=== PATIENT | female | born 1960 | race Caucasian/White ===

== ENCOUNTER 2020-05-09 18:56 | Inpatient (IN) ==
[2020-05-09] MEDS ORDERED: Naloxone 0.4 MG/ML INJ IVP PRN (22:01)
[2020-05-09] MEDS ORDERED: 0.9 % Sodium Chloride 1,000 ML IVC SCH (22:15)
[2020-05-10] MEDS: Acetaminophen 325 MG TABLET PO PRN ×3 (02:54→19:47)
[2020-05-10 05:33] LABS: Basophils % 0.2 %; Hematocrit 31.6 % (35.3-44.9); Hemoglobin 10.1 g/dL (11.5-15.4); INR 1.4; Immature Granulocytes % 0.9 % (0-4); Lymphocytes # 0.5 K/mcL (0.6-4.6); Lymphocytes % 2.9 %; Mean Corpuscular Hemoglobin 28.9 pg (28.0-33.3); Mean Corpuscular Volume 90.3 fL (83.0-100.0); Mean Platelet Volume 12.2 fL (9.4-12.4); Monocytes # 0.6 K/mcL (0.0-1.3); Monocytes % 3.8 %; Neutrophils # 15.6 K/mcL (1.6-8.9); Platelet Count 110 K/mcL (140-400); Prothrombin Time 16.3 Seconds (9.4-12.1); Red Cell Distribution Width 14.6 % (11.5-14.5); Segmented Neutrophils % 92.2 %; White Blood Count 16.9 K/mcL (4.3-11.1)
[2020-05-10 05:35] LABS: Activated Partial Thrombo Time 27.2 Seconds (26.0-36.0)
[2020-05-10 05:42] LABS: Albumin 2.8 g/dL (3.5-5.7); Bilirubin,Total 0.8 mg/dL (0.3-1.0); Calcium 7.9 mg/dL (8.6-10.3); Globulin 2.7 g/dL (2.4-3.5); Potassium 2.7 mEq/L (3.5-5.1); Total Protein 5.5 g/dL (6.4-8.9)
[2020-05-10] MEDS ORDERED: *HR* Heparin 5,000 UNIT/ML VIAL SQ SCH (06:00)
[2020-05-10 06:32] LABS: Bacteria,Urine Few per hpf (None-Few); Bilirubin,Urine Negative (Negative); Blood,Urine Large (Negative); Clarity,Urine Turbid (Clear); Color,Urine Light-Orange (Yellow); Glucose,Urine (UA) Normal (Normal); Ketones,Urine Trace mg/dL (Negative); Leukocyte Esterase,Urine Large (Negative); Mucus,Urine Few per lpf (None-Few); Nitrite,Urine Positive (Negative); Protein,Urine 200 mg/dL (Neg-Trace); RBC,Urine TNTC per hpf (0-3); Specific Gravity,Urine > 1.030 (1.010-1.025); Urobilinogen,Urine Normal (Normal); WBC,Urine TNTC per hpf (0-3)
[2020-05-10] MEDS: cefTRIAXone 1,000 MG in 0.9 % Sodium Chloride Mini Bag 100 ML IVPB SCH (07:56)
[2020-05-10] MEDS ORDERED: 0.9 % Sodium Chloride 1,000 ML IVC ONE (08:17)
[2020-05-10] MEDS ORDERED: Potassium Chloride 40 MEQ, Lidocaine 1% 2 ML in 0.9 % Sodium Chloride 500 ML IVPB ONE (08:18)
[2020-05-10] MEDS ORDERED: 0.9 % Sodium Chloride 1,000 ML IVC SCH (08:30)
[2020-05-10 09:09] LABS: Magnesium 1.6 mg/dL (1.6-2.6)
[2020-05-10 18:58] LABS: Adenovirus Not Detected (Not Detect); Bordetella Pertussis Not Detected (Not Detect); Chlamydophila pneumoniae Not Detected (Not Detect); Coronavirus 229E Not Detected (Not Detect); Coronavirus HKU1 Not Detected (Not Detect); Coronavirus NL63 Not Detected (Not Detect); Coronavirus OC43 Not Detected (Not Detect); Human Metapneumovirus Not Detected (Not Detect); Human Rhinovirus/Enterovirus Not Detected (Not Detect); Influenza A Subtype 2009 H1 Not Detected (Not Detect); Influenza B Not Detected (Not Detect); Mycoplasma pneumoniae Not Detected (Not Detect); Parainfluenza Virus 1 Not Detected (Not Detect); Parainfluenza Virus 2 Not Detected (Not Detect); Parainfluenza Virus 3 Not Detected (Not Detect); Parainfluenza Virus 4 Not Detected (Not Detect); Respiratory Syncytial Virus Not Detected (Not Detect); SARS-CoV-2 Not Detected (Not Detect)
[2020-05-10] MEDS: 0.9 % Sodium Chloride 1,000 ML IVC SCH (19:49)
[2020-05-10] MEDS: Ondansetron 4 MG/2 ML VIAL IVP PRN (21:09)
[2020-05-10] MEDS ORDERED: Acetaminophen/Butalbital/CaffeineTABLET PO ONE (21:21)
[2020-05-11 03:27] LABS: Basophils % 0.1 %; Hemoglobin 9.4 g/dL (11.5-15.4); Lymphocytes % 3.2 %; Monocytes % 2.9 %
[2020-05-11 03:29] LABS: Hematocrit 30.4 % (35.3-44.9); Immature Granulocytes % 2.2 % (0-4); Immature Platelets 9.2 % (1.1-6.1); Lymphocytes # 0.5 K/mcL (0.6-4.6); Mean Corpuscular HGB Conc 30.9 g/dL (31.6-35.5); Mean Corpuscular Hemoglobin 27.8 pg (28.0-33.3); Mean Corpuscular Volume 89.9 fL (83.0-100.0); Mean Platelet Volume 12.2 fL (9.4-12.4); Monocytes # 0.4 K/mcL (0.0-1.3); Red Blood Count 3.38 M/mcL (3.82-4.97); Red Cell Distribution Width 14.7 % (11.5-14.5); Segmented Neutrophils % 91.6 %; White Blood Count 14.4 K/mcL (4.3-11.1)
[2020-05-11 03:31] LABS: Neutrophils # 13.2 K/mcL (1.6-8.9); Platelet Count 91 K/mcL (140-400)
[2020-05-11 03:49] LABS: Calcium 7.6 mg/dL (8.6-10.3)
[2020-05-11] MEDS: Acetaminophen 325 MG TABLET PO PRN ×2 (04:46→15:53)
[2020-05-11] MEDS: 0.9 % Sodium Chloride 1,000 ML IVC SCH ×2 (07:07→16:39)
[2020-05-11] MEDS: Venlafaxine XR (24 HR) 150 MG CAP.ER.24H PO SCH (07:46)
[2020-05-11] MEDS: cefTRIAXone 1,000 MG in 0.9 % Sodium Chloride Mini Bag 100 ML IVPB SCH (07:46)
[2020-05-11] MEDS ORDERED: Potassium Chloride 40 MEQ, Lidocaine 1% 2 ML in 0.9 % Sodium Chloride 500 ML IVPB ONE (07:55)
[2020-05-11] MEDS: Ondansetron 4 MG/2 ML VIAL IVP PRN (08:44)
[2020-05-11] MEDS ORDERED: *HR* Promethazine 25 MG/ML VIAL IM PRN (09:24)
[2020-05-12] MEDS ORDERED: Ipratropium/Albuterol Neb 3 ML IH PRN
[2020-05-12 01:14] LABS: Basophils % 0.1 %; Hematocrit 32.1 % (35.3-44.9); Hemoglobin 10.1 g/dL (11.5-15.4); Immature Granulocytes % 0.7 % (0-4); Immature Platelets 9.7 % (1.1-6.1); Lymphocytes # 0.5 K/mcL (0.6-4.6); Lymphocytes % 5.5 %; Mean Corpuscular HGB Conc 31.5 g/dL (31.6-35.5); Mean Corpuscular Hemoglobin 28.1 pg (28.0-33.3); Mean Corpuscular Volume 89.4 fL (83.0-100.0); Mean Platelet Volume 12.2 fL (9.4-12.4); Monocytes # 0.2 K/mcL (0.0-1.3); Monocytes % 2.2 %; Red Blood Count 3.59 M/mcL (3.82-4.97); Red Cell Distribution Width 14.8 % (11.5-14.5); Segmented Neutrophils % 91.5 %; White Blood Count 9.8 K/mcL (4.3-11.1)
[2020-05-12 01:21] LABS: Platelet Count 79 K/mcL (140-400)
[2020-05-12 01:35] LABS: Calcium 7.8 mg/dL (8.6-10.3); Potassium 3.1 mEq/L (3.5-5.1)
[2020-05-12] MEDS: 0.9 % Sodium Chloride 1,000 ML IVC SCH (04:08)
[2020-05-12] MEDS ORDERED: Albuterol 2.5 MG/3 ML NEBULIZER IH PRN ×2 (07:21→16:11)
[2020-05-12] MEDS ORDERED: predniSONE 20 MG TABLET PO SCH (09:00)
[2020-05-12] MEDS: Ipratropium/Albuterol Neb 3 ML IH SCH ×5 (09:58→23:35)
[2020-05-12] MEDS: Venlafaxine XR (24 HR) 150 MG CAP.ER.24H PO SCH (10:42)
[2020-05-12] MEDS: cefTRIAXone 1,000 MG in 0.9 % Sodium Chloride Mini Bag 100 ML IVPB SCH (10:43)
[2020-05-12] MEDS ORDERED: *HR* Propofol 200 MG/20 ML VIAL IVP ONE (13:54)
[2020-05-12] MEDS ORDERED: Ondansetron 4 MG/2 ML VIAL ONE (13:54)
[2020-05-12] MEDS ORDERED: Dexamethasone 4 MG/ML VIAL ONE (13:54)
[2020-05-12] MEDS ORDERED: *HR* Succinylcholine 200 MG/10 ML VIAL IVP ONE (13:54)
[2020-05-12] MEDS ORDERED: *HR* Midazolam HCl 2 MG/2 ML VIAL ONE (13:55)
[2020-05-12] MEDS ORDERED: *HR* FentaNYL (PF) 100 MCG/2 ML VIAL ONE (13:55)
[2020-05-12] MEDS ORDERED: Isovue-300 50ML VIAL ONE (14:02)
[2020-05-12] MEDS ORDERED: Ondansetron 4 MG/2 ML VIAL IVP PRN ×3 (14:08→16:11)
[2020-05-12] MEDS ORDERED: *HR* HYDROmorphone PF 0.5 MG/0.5 ML SYRINGE IVP PRN ×2 (14:08→16:11)
[2020-05-12] MEDS ORDERED: *HR* Meperidine 25 MG/ML SYRINGE IVP PRN ×2 (14:08→16:11)
[2020-05-12] MEDS ORDERED: Acetaminophen IV 1,000 MG/100 ML BAG IVPB ONE (14:08)
[2020-05-12] MEDS ORDERED: Acetaminophen 325 MG TABLET PO PRN (16:11)
[2020-05-12] MEDS ORDERED: Naloxone 0.4 MG/ML INJ IVP PRN (16:11)
[2020-05-12] MEDS ORDERED: *HR* Promethazine 25 MG/ML VIAL IM PRN (16:11)
[2020-05-13] MEDS: Ipratropium/Albuterol Neb 3 ML IH SCH ×6 (03:48→23:55)
[2020-05-13 04:35] LABS: Basophils % 0.1 %; Mean Platelet Volume 11.7 fL (9.4-12.4); Red Cell Distribution Width 14.8 % (11.5-14.5)
[2020-05-13 04:37] LABS: Hematocrit 30.6 % (35.3-44.9); Hemoglobin 9.7 g/dL (11.5-15.4); Immature Granulocytes % 0.8 % (0-4); Immature Platelets 6.6 % (1.1-6.1); Lymphocytes # 0.4 K/mcL (0.6-4.6); Lymphocytes % 5.1 %; Mean Corpuscular HGB Conc 31.7 g/dL (31.6-35.5); Mean Corpuscular Hemoglobin 28.2 pg (28.0-33.3); Monocytes # 0.3 K/mcL (0.0-1.3); Monocytes % 3.9 %; Neutrophils # 7.7 K/mcL (1.6-8.9); Platelet Count 106 K/mcL (140-400); Red Blood Count 3.44 M/mcL (3.82-4.97); Segmented Neutrophils % 90.1 %; White Blood Count 8.5 K/mcL (4.3-11.1)
[2020-05-13 04:55] LABS: Calcium 8.2 mg/dL (8.6-10.3); Potassium 3.5 mEq/L (3.5-5.1)
[2020-05-13] MEDS: Venlafaxine XR (24 HR) 150 MG CAP.ER.24H PO SCH (09:02)
[2020-05-13] MEDS: predniSONE 20 MG TABLET PO SCH (09:03)
[2020-05-13] MEDS: cefTRIAXone 1,000 MG in 0.9 % Sodium Chloride Mini Bag 100 ML IVPB SCH (09:03)
[2020-05-14 03:04] LABS: Basophils % 0.4 %; Hemoglobin 9.1 g/dL (11.5-15.4); Immature Granulocytes % 1.6 % (0-4); Lymphocytes # 0.8 K/mcL (0.6-4.6); Lymphocytes % 14.3 %; Mean Corpuscular HGB Conc 31.4 g/dL (31.6-35.5); Mean Corpuscular Hemoglobin 28.2 pg (28.0-33.3); Mean Corpuscular Volume 89.8 fL (83.0-100.0); Mean Platelet Volume 12.1 fL (9.4-12.4); Monocytes # 0.5 K/mcL (0.0-1.3); Monocytes % 8.8 %; Neutrophils # 4.3 K/mcL (1.6-8.9); Platelet Count 124 K/mcL (140-400); Red Blood Count 3.23 M/mcL (3.82-4.97); Segmented Neutrophils % 74.9 %; White Blood Count 5.7 K/mcL (4.3-11.1)
[2020-05-14 03:27] LABS: BUN/Creatinine Ratio 22 (6-26); Blood Urea Nitrogen 25 mg/dL (6-20); Calcium 8.8 mg/dL (8.6-10.3); Carbon Dioxide 28 mEq/L (23-29); Chloride 106 mEq/L (98-107); Glucose 133 mg/dL (70-105); Osmolality,Calculated 298 (280-300); Potassium 3.1 mEq/L (3.5-5.1); Sodium 141 mEq/L (136-145); eGFR For African Americans > 60 (> 60); eGFR For Non-African Americans 50 (> 60)
[2020-05-14] MEDS: Ipratropium/Albuterol Neb 3 ML IH SCH ×6 (04:48→23:16)
[2020-05-14] MEDS ORDERED: Saline Nasal Spray 44 ML BOTTLE NS PRN (08:24)
[2020-05-14 08:47] LABS: Magnesium 1.7 mg/dL (1.6-2.6); Phosphorous 3.2 mg/dL (2.7-4.5)
[2020-05-14] MEDS: predniSONE 20 MG TABLET PO SCH (09:25)
[2020-05-14] MEDS: Multivit/Ca/Min/Fe/FA 1 TAB TABLET PO SCH (09:25)
[2020-05-14] MEDS: cefTRIAXone 1,000 MG in 0.9 % Sodium Chloride Mini Bag 100 ML IVPB SCH (09:25)
[2020-05-14] MEDS: Venlafaxine XR (24 HR) 150 MG CAP.ER.24H PO SCH (09:25)
[2020-05-14] MEDS: Artificial Tears SOLN 15 ML BOTTLE BOTH EYES SCH ×2 (09:27→20:52)
[2020-05-15 02:33] LABS: Basophils % 0.4 %
[2020-05-15 02:35] LABS: Hematocrit 29.2 % (35.3-44.9); Hemoglobin 9.1 g/dL (11.5-15.4); Immature Granulocytes % 2.2 % (0-4); Immature Platelets 5.8 % (1.1-6.1); Lymphocytes # 1.1 K/mcL (0.6-4.6); Mean Corpuscular HGB Conc 31.2 g/dL (31.6-35.5); Mean Corpuscular Hemoglobin 27.9 pg (28.0-33.3); Mean Corpuscular Volume 89.6 fL (83.0-100.0); Mean Platelet Volume 11.4 fL (9.4-12.4); Monocytes # 0.7 K/mcL (0.0-1.3); Monocytes % 13.4 %; Nucleated Red Blood Cells 0.4 /100 WBC (0); Platelet Count 137 K/mcL (140-400); Red Blood Count 3.26 M/mcL (3.82-4.97); White Blood Count 5.4 K/mcL (4.3-11.1)
[2020-05-15 02:40] LABS: Neutrophils # 3.5 K/mcL (1.6-8.9)
[2020-05-15 02:51] LABS: BUN/Creatinine Ratio 27 (6-26); Blood Urea Nitrogen 25 mg/dL (6-20); Calcium 8.4 mg/dL (8.6-10.3); Carbon Dioxide 29 mEq/L (23-29); Chloride 106 mEq/L (98-107); Glucose 117 mg/dL (70-105); Osmolality,Calculated 295 (280-300); Potassium 3.4 mEq/L (3.5-5.1); Sodium 140 mEq/L (136-145); eGFR For African Americans > 60 (> 60); eGFR For Non-African Americans > 60 (> 60)
[2020-05-15] MEDS: Ipratropium/Albuterol Neb 3 ML IH SCH ×5 (03:31→21:38)
[2020-05-15] MEDS: *HR* Enoxaparin 40 MG/0.4 ML SYRINGE SQ SCH (06:19)
[2020-05-15] MEDS: Multivit/Ca/Min/Fe/FA 1 TAB TABLET PO SCH (10:10)
[2020-05-15] MEDS: Venlafaxine XR (24 HR) 150 MG CAP.ER.24H PO SCH (10:10)
[2020-05-15] MEDS: predniSONE 20 MG TABLET PO SCH (10:10)
[2020-05-15] MEDS: cefTRIAXone 1,000 MG in 0.9 % Sodium Chloride Mini Bag 100 ML IVPB SCH (10:17)
[2020-05-15] MEDS: Artificial Tears SOLN 15 ML BOTTLE BOTH EYES SCH ×2 (10:18→20:03)
[2020-05-15] MEDS: Calcium Gluconate 1gm/50mL 1 GM/50 ML BAG IVPB SCH ×2 (10:56→11:55)
[2020-05-15] MEDS ORDERED: Ipratropium/Albuterol Neb 3 ML IH PRN (17:19)
[2020-05-16 02:23] LABS: Basophils % 0.3 %; Hematocrit 31.2 % (35.3-44.9); Immature Granulocytes % 4.7 % (0-4); Lymphocytes % 15.5 %; Mean Corpuscular HGB Conc 32.1 g/dL (31.6-35.5); Mean Corpuscular Hemoglobin 28.4 pg (28.0-33.3); Mean Corpuscular Volume 88.6 fL (83.0-100.0); Mean Platelet Volume 11.2 fL (9.4-12.4); Monocytes # 0.8 K/mcL (0.0-1.3); Monocytes % 11.9 %; Neutrophils # 4.5 K/mcL (1.6-8.9); Platelet Count 190 K/mcL (140-400); Red Blood Count 3.52 M/mcL (3.82-4.97); Red Cell Distribution Width 14.7 % (11.5-14.5); Segmented Neutrophils % 67.6 %; White Blood Count 6.6 K/mcL (4.3-11.1)
[2020-05-16 02:42] LABS: BUN/Creatinine Ratio 31 (6-26); Blood Urea Nitrogen 29 mg/dL (6-20); Calcium 8.8 mg/dL (8.6-10.3); Carbon Dioxide 29 mEq/L (23-29); Chloride 105 mEq/L (98-107); Glucose 121 mg/dL (70-105); Osmolality,Calculated 297 (280-300); Potassium 3.6 mEq/L (3.5-5.1); Sodium 140 mEq/L (136-145); eGFR For African Americans > 60 (> 60); eGFR For Non-African Americans > 60 (> 60)
[2020-05-16 02:43] LABS: Magnesium 1.6 mg/dL (1.6-2.6); Phosphorous 3.2 mg/dL (2.7-4.5)
[2020-05-16] MEDS: Ipratropium/Albuterol Neb 3 ML IH SCH ×2 (03:57→09:51)
[2020-05-16] MEDS: *HR* Enoxaparin 40 MG/0.4 ML SYRINGE SQ SCH (06:17)
[2020-05-16 07:42] VITALS: BP 177/92
[2020-05-16] MEDS ORDERED: Perflutren Lipid Microsphere 1.3 ML in 0.9 % Sodium Chloride 8.7 ML IVP PRN (07:57)
[2020-05-16] MEDS: Multivit/Ca/Min/Fe/FA 1 TAB TABLET PO SCH (08:40)
[2020-05-16] MEDS: predniSONE 20 MG TABLET PO SCH (08:41)
[2020-05-16] MEDS: Venlafaxine XR (24 HR) 150 MG CAP.ER.24H PO SCH (08:41)
[2020-05-16] MEDS: cefTRIAXone 1,000 MG in 0.9 % Sodium Chloride Mini Bag 100 ML IVPB SCH (08:41)
[2020-05-16] MEDS: Artificial Tears SOLN 15 ML BOTTLE BOTH EYES SCH (08:42)
[2020-05-16] MEDS ORDERED: amLODIPine 5 MG TABLET PO SCH (09:00)
[2020-05-16 11:08] LABS: Calculi Mass 55 mg
== END 2020-05-16 15:43 | disposition home or self-care (01) | DRG 853 ==
LOC: 3ANU → SUATTDRO 21:08
PROVIDERS: ADMIT Student in an Organized Health Care Education/Training Program; ATTEND Internal Medicine